=== PATIENT | female | born 1980 | race Caucasian/White ===

== ENCOUNTER 2019-05-07 13:41 | Emergency (ER) | payer BC ==
[~2019-05-07] VITALS: Ht 162.6 cm; Wt 72.6 kg
[2019-05-07 13:42] VITALS: BP_SYST 124
--- NOTE | 2019-05-07 13:52 | NUR ---
Patient to ER bed H1 to gown for evaluation. Side rails up.
--- NOTE | 2019-05-07 13:55 | NUR ---
PT C/O BODYACHES FROM WORK. PT HAD RECENT DX: FIBROMYAGLIA
--- NOTE | 2019-05-07 14:00 | NUR ---
ER at bedside examining patient.
[2019-05-07 14:09] VITALS: BP_SYST 124
--- NOTE | 2019-05-07 14:09 | NUR ---
Patient given written and verbal discharge instructions and verbalizes understanding. ER MD discussed with patient the results and treatment provided. Patient in stable condition. ID arm band removed. NO Rx of given. Patient educated on pain management and to follow up with PMD. Pain Scale 3 Opportunity for questions provided and answered. Medication side effect fact sheet provided.
== END 2019-05-07 14:09 | disposition home or self-care (01) ==
LOC: SED 13:41
DX: R25.2 Cramp and spasm (principal)
CPT/HCPCS: 99283